=== PATIENT | female | born 1935 | race Native Hawaiian/Other Pacific Islander ===

== ENCOUNTER 2022-01-21 15:04 | Outpatient (CLI) | payer BC | END 2022-01-21 18:59 | disposition home or self-care (01) | LOC: US 15:04 | PROVIDERS: ATTEND Internal Medicine | DX: R06.02 Shortness of breath (principal); R60.0 Localized edema ==

== ENCOUNTER 2022-05-14 08:59 | Outpatient (CLI) | payer BC | END 2022-05-14 19:09 | disposition home or self-care (01) | LOC: RESP 08:59 | PROVIDERS: ATTEND Internal Medicine | DX: R07.89 Other chest pain (principal); R42 Dizziness and giddiness; R55 Syncope and collapse; R53.1 Weakness; R29.898 Other symptoms and signs involving the musculoskeletal system ==

== ENCOUNTER 2023-04-20 15:43 | Outpatient (CLI) | payer BC | END 2023-04-20 19:18 | disposition home or self-care (01) | LOC: CT 15:43 | PROVIDERS: ATTEND Internal Medicine | DX: Z87.442 Personal history of urinary calculi (principal); R31.9 Hematuria, unspecified; R10.9 Unspecified abdominal pain ==